=== PATIENT | female | born 1985 | race Caucasian/White ===

== ENCOUNTER → 2022-01-25 | Outpatient (CLI) | payer BC, SELFPAY ==
--- NOTE | 2022-01-25 08:13 | RAD_ITS ---
STUDY: HYSTEROSALPINGOGRAM. REASON FOR EXAM: Female, 36 years old. INFERTILITY FLUOROSCOPY TIME (if supplied): ( 21 seconds ) minutes/seconds. 2 images were submitted. TECHNIQUE: A hysterosalpingogram was performed by the proof clerk. Imaging was submitted. COMPARISON: None. FINDINGS: The uterus is unremarkable. There is filling of both fallopian tubes with spill. RAD/Salpingogram IMPRESSION: Normal hysterosalpingogram. Electronically Signed: Sean Valenzuela MD at 9:17 EDT ,
== END | disposition home or self-care (01) ==
PROVIDERS: Referring Provider Obstetrics & Gynecology; Visit Provider Obstetrics & Gynecology
DX: N97.9 Female infertility, unspecified (principal)
CPT/HCPCS: 58340; 74740; Q9967